=== PATIENT | female | born 1950 | race Caucasian/White ===

== ENCOUNTER 2017-03-13 13:14 | Inpatient (IN) | payer MEDICARE ==
[~2017-03-13] VITALS: Ht 162.6 cm; Wt 59.5 kg
--- NOTE | ~2017-03-13 | FU ---
[facility] Nutrition Therapy DATE: 03/17/17 Patient: GRAZYNA NGUYEN Physician: NEGAR Address: [address] Room/Bed: [address], Zip: [place] [address] Admit Date: 03/13/17 Date of : [birth year] Height: 5 4 Weight: 158 71.8 NUTRITION MONITORING/FOLLOW-UP: Reason: PT SEEN FOR FOLLOW-UP/ENTERAL NUTRITION SUPPORT DX: AMS, RESP FAILURE, PNA Anthropometrics: 5'6", WT: 158# (72 KG), BMI: 25.5 -WEIGHTS HAVE RANGED 134-158# SINCE ADMIT (ADMIT WEIGHT: 134#) Labs: GLU: 191, ALB: 2.6 Meds: KCL, PROPOFOL, SENOKOT, NOVOLOG, FENTANYL, SOLU-MEDROL, VERSED, ZOFRAN, PROTONIS, MIRALAX I&O's: 3876/2150 Skin: BILATERAL HEELS PRESSURE ULCER (PREVIOUSLY NOTED) Estimated Nutrition Needs: 8802-2700 KCAL 73-91 G PRO Assessment: CHART REVIEWED AND EVENTS NOTED. PT SEEN FOR ENTERAL NUTRITION SUPPORT FOLLOW-UP. PT CONTINUES TO BE INTUBATED AND SEDATED (PROPOFOL AT RATE OF 15.6 ML/HR PROVIDING ~411 KCAL FROM LIPIDS) RECEIVING ALTERNATIVE NUTRITION SUPPORT OF JEVITY 1.5 @ 40 ML/HR + 30 ML SUGAR-FREE PROSTAT ONCE DAILY + 200 ML q 4 HOURS FREE H20 FLUSHES (PER MD). PER RN AND CHART, PT TOLERATING EN, NOTING NO ISSUES. PER PUMP HISTORY, PT RECEIVING ~96% TOTAL VOLUME PAST 24 HOURS. NO FAMILY IN ROOM AT TIME OF VISIT. RD TO CONTINUE TO FOLLOW. -EN PROVIDES 1951 KCAL, 76 G PRO, 1930 ML FREE H20 Dx: INADEQUATE ORAL INTAKE R/T CURRENT DIAGNOSIS, VENT DEPENDENCE AEB NPO STATUS.-ACTIVE/RESOLVED NEW Dx: INADEQUATE ORAL INTAKE R/T CURRENT DIAGNOSIS, VENT DEPENDENCE AEB PT RECEIVING ENTERAL NUTRITION SUPPORT. Intervention: 1. ENTERAL NUTRITION SUPPORT Monitoring, Evaluation and Goals: 1. ENTERAL NUTRITION; PROVIDE >80% TOTAL VOLUME AT GOAL PAST 24 HOURS-MET 2. WEIGHTS; PROMOTE WEIGHT MAINTENANCE-IN PROGRESS (WEIGHTS RANGING 134-158#) 3. LABS; GLU (NOT MET), LYTES (IMPROVED) 4. GI; PROMOTE REGULAR GI FUNCTION-IN PROGRESS [facility] Nutrition Therapy DATE: 03/17/17 Patient: GRAZYNA NGUYEN Physician: NEGAR Address: [address] Room/Bed: [address], Zip: [place] [address] Admit Date: 03/13/17 Date of : [birth year] Height: 5 4 Weight: 158 71.8 5. SKIN; PROMOTE SKIN HEALING-IN PROGRESS MONITOR: -TF RATE/RESIDUALS -WEIGHTS -LABS -SEDATION RATE -EXTUBATION? Recommendations: 1. RECOMMEND TO CONTINUE CURRENT ENTERAL NUTRITION SUPPORT OF JEVITY 1.5 @ 40 ML/HR + 30 ML SUGAR-FREE PROSTAT DAILY + SEDATION -PROVIDES 1951 KCAL, 76 G PRO, 730 ML FREE H20 CONTINUE FREE H20 FLUSHES ABOVE PER MD 2. CONTINUE TO MONITOR BLOOD SUGAR CONTROL REGIMEN-PT'S BLOOD SUGARS ELEVATED 3. ONCE PT EXTUBATED, ADVANCE DIET PER MANAGER STYLE HH DIET RD WILL F/U PER PROTOCOL PT IS MOD/SEVERELY COMPROMISED Respectfully, RHIANNON SOFIA MS, RD, LD [facility] cc: client file
--- NOTE | ~2017-03-13 | CO ---
Unit #: [id number] #: [id number] Patient: GRAZYNA NGUYEN [id number] [facility] [address] [place], [place] [address] [id number] I MR#: [id number] NAME: GRAZYNA NGUYEN ROOM: CICCU2 Age: 66 Sex: F Admission Date: 03/13/2017 : 1950 Attending Physician: Davian Lyons M.D. Primary Care Physician: Primary Care Physician No Consultation Date: 03/14/2017 CONSULTATION REPORT PRIMARY CARE PHYSICIAN Not listed. REASON FOR CONSULT Age-indeterminate lacunar infarct. PATIENT IDENTIFICATION This is a 66-year-old, female, evaluated in ICU room 5 at [facility]. SOURCE OF INFORMATION Obtained from the medical record. HISTORY OF PRESENT ILLNESS This is a 66-year-old, female with a past medical history of admission to [facility] in 2014 for Valium and Seroquel overdose, history of chronic kidney disease, stage III, and bipolar disorder followed by Dr. Pastrana, who presents to [facility] with altered mental status and cough. Apparently, the patient has been coughing for the last few days prior to admission, and was possibly confused on the day prior to admission. Apparently, on the day of admission, the patient was getting dressed for doctor's appointment that was scheduled for the next day. She had decreased appetite and had decreased urine output. Given all the above, the apparently decided to bring her to the ER for further evaluation of concern for her worsening condition and changes he was seeing. Upon arrival to the ER, her pulse was 132 and her respirations were 19. She was apparently agonal with oxygen saturation 74% on room air. She ended up being intubated and chest x-ray showed bilateral infiltrates. She was admitted for treatment of pneumonia and given Rocephin and Levaquin in the ER. She had a head CT scan done for mental status changes that was with and without contrast. It showed no definite acute intracranial abnormality. It shows atrophy for her age group with mild probable sequelae of small vessel disease and disproportionate volume loss, most consistent with long-term alcohol abuse as per history and an area of possible age-indeterminate lacunar infarct in the medial right basal ganglia, but no appreciable mass effect. Therefore, Neurology was asked to further evaluate. The patient is unable to provide any history and review of systems. She is currently intubated and on a fentanyl drip. She does open her eyes to voice. She is anxious, she is tensed, but she does follow some commands. She moves all extremities equally and spontaneously and has no cranial nerve deficits on exam, but exam is limited neurologically given her intubation and sedation. Unit #: [id number] #: [id number] Patient: GRAZYNA NGUYEN PAST MEDICAL HISTORY 1. Chronic kidney disease, stage 3. 2. Admission to [facility] in 2014 for Valium and Seroquel overdose. 3. Bipolar disorder, followed by Dr. Pastrana. 4. Hysterectomy. 5. Cholecystectomy. 6. Hemorrhoid surgery. FAMILY HISTORY Positive for COPD and lung cancer. SOCIAL HISTORY The patient is , lives with her . She smokes tobacco. She smokes marijuana. The ER triage sheet shows she is a daily drinker, but according to the medical record, apparently the told the hospitalist that she only drinks alcohol on occasion. ALLERGIES Salicylates, pyrazoles, NSAIDs, aspirin, ibuprofen. HOME MEDICATIONS As per med rec include acetaminophen 325 mg p.o. daily p.r.n., Norvasc 10 mg p.o. daily, fluoxetine 40 mg p.o. daily, B12 1000 mcg p.o. daily. REVIEW OF SYSTEMS 14-point review of systems not able to be done given patient's intubation and sedation. PHYSICAL EXAMINATION VITAL SIGNS: Temperature 97.9, she has been afebrile, pulse 79, respirations 22, blood pressure 102/48. Blood pressure in the ER on arrival was 120/75. She has had some episodes of hypotension here, has been started on a Levophed drip. She remains stable today. Oxygen saturation 100% on the ventilator. Height 5 feet 4 inches, weight 134 pounds. NEUROLOGIC: The patient is intubated. She is sedated; however, she opens her eyes to voice. She is anxious and tense, but moves all extremities equally and spontaneously. She follows some commands. Unable to evaluate speech or cognition further as she is intubated and on fentanyl drip. Cranial nerve exam, she responds to threats in the primary and peripheral visual kraus. Eyes are conjugate without ptosis or nystagmus. Extraocular movements are intact. Unable to assess sensation of face and scalp or fully assess strength of the muscles of facial expression, but no asymmetry seen. No obvious cranial nerve findings seen. Hearing is intact to voice. Unable to assess tongue, uvula, or palate. Head turning is unremarkable spontaneously and with command, I am unable to assess shoulder shrug. Motor exam, she is very tense. Therefore, I am not able to assess tone appropriately. She seems very strong in all extremities and equal, nonfocal. Sensory exam, unable to fully assess at this time. Gait and Romberg deferred. Reflexes, unable to fully assess appropriately as the patient is tense. Coordination, unable to assess. No tremors or myoclonus seen. Unit #: [id number] #: [id number] Patient: GRAZYNA NGUYEN DIAGNOSTIC STUDIES IMAGING STUDIES: CT of the head without contrast, please see above. LABORATORY RESULTS: Hemoglobin A1c 5.8. Blood culture, preliminary; no growth after 24 hours. Legionella urine negative. Sputum test; moderate white blood cells, few epithelial cells, few gram-positive cocci in clusters, rare gram-positive cocci in pairs. Urine culture; gram-negative rods greater than 100,000 colony count. Troponin 0.04. Sodium 132, potassium 4.2, chloride 100, CO2 of 25, glucose 125, BUN 38, creatinine 1.2, estimated GFR 46.4, calcium 8.2, CK 33. White blood cell count 14.9, hemoglobin 11, hematocrit 36.4, platelet count 284. TSH 1.29. BNP 55. Ammonia 25. Lactic acid 1.8. Urine tox screen is positive for benzodiazepines, marijuana and TCA. PT 11.4, INR 1.1, PTT 28.5. Initial white count 22.5, platelet count 335. IMPRESSION 1. Toxic and metabolic encephalopathy present on admission. 2. Pneumonia. 3. Acute respiratory failure. 4. Urinary tract infection. 5. Chronic kidney disease. PLAN I reviewed the head CT with Dr. Tejeda at the time of his evaluation and rounding. He agrees to the above. She appears to have possibly very small hypodensity in right basal ganglia, but it does not appear to be acute or subacute based upon CT findings and does not correlate clinically with the patient; however, the patient's exam is limited given her intubation and sedation. She is critically ill at this time and her choice at this point is a wait and see the clinical picture and how it improves. We will get MRI; however, we recommend waiting on getting an MRI as the patient is intubated and sedated and is having difficulty lying still even with sedation. We will follow closely along with you. Consideration for antiplatelet therapy, but again recommendations to treat other acute issues and consider MRI of the brain, and re-evaluation clinically as the patient improves. Any findings on the CT did not explain the patient's presentation of mental status changes. No hemorrhage seen on the CT scan. We will follow along with you. We thank you very much for allowing us to assist in the care of this patient. Dictated by... Darlin Oliveros A.P.R.N. for Bg Garcia/jose f TD: 03/15/2017 05:39 JOB #: [id number] Unit #: [id number] #: [id number] Patient: GRAZYNA NGUYEN CONSULTATION REPORT Page 1 of 1 X Darlin Oliveros JUVENILE COUNSELOR X CONSULTATION REPORT
--- NOTE | ~2017-03-13 | CR72 ---
[facility] A Service of [facility] RADIOLOGY TEXT RESULTS PATIENT: GRAZYNA NGUYEN LOCATION: [address] : [birth year] UNIT #: [id number] AGE: [address]: Davian Lyons MD SEX: F ORDER DR: [id number] [facility] [address] [place], [place] [address] [id number] I MR#: [id number] Acc #: [id number] NAME: GRAZYNA NGUYEN : 1950 SEX: F STUDY DATE/TIME: 03/13/2017 13:34 UNIT: [facility] ROOM: [facility] STUDY DESCRIPTION: CR Chest Single View Portable Attending Physician: Kiesha Hernández M.D. Ordering Physician: Amilcar Stevenson D.O. Primary Care Physician: No Primary Care Physician MEDICAL IMAGING REPORT This report is preliminary unless electronic signature is present EXAM Chest x-ray single-view portable. HISTORY ET tube placement today. COMMENT Single frontal portable view of the chest timed 13:34 03/13/2017 is reviewed. There is an earlier film from 05/27/2015. The endotracheal tube is satisfactory. The heart size is normal. There is interval change in the appearance of the lung parenchyma with interval development of reticulonodular disease diffusely both lungs. Please correlate for clinical evidence of infectious or inflammatory disease. There is some old granulomatous disease redemonstrated. There is no congestive failure suspected. There is no pleural effusion or pneumothorax. IMPRESSION 1. Endotracheal tube is satisfactory. 2. Abnormal appearance of lung parenchyma new from 2014 with development of diffuse reticulonodular disease. Please correlate for clinical evidence of infectious or inflammatory disease. The cardiac silhouette size is normal and there is no evidence for pleural effusion and the findings are not suggestive of congestive heart failure. Dictated by... Vilma Archibald M.D. THIS IS AN ELECTRONICALLY VERIFIED REPORT Vilma Archibald M.D. at 03/15/2017 8:41 AM SAC/bd [facility] A Service of [facility] RADIOLOGY TEXT RESULTS PATIENT: GRAZYNA NGUYEN LOCATION: [facility] CICCU2-05 : [birth year] UNIT #: [id number] AGE: [address]: Davian Lyons MD SEX: F ORDER DR: TD: 03/14/2017 09:18 JOB #: [id number] MEDICAL IMAGING REPORT Page 1 of 1 COPY
--- NOTE | ~2017-03-13 | OR ---
Unit #: [id number] #: [id number] Patient: GRAZYNA NGUYEN [id number] [address] [address] [id number] I MR#: [id number] NAME: GRAZYNA NGUYEN ROOM: [facility] Date of Procedure: 03/16/2017 Admission Date: 03/13/2017 Surgeon: Olvin Ramirez M.D. : 1950 Attending Physician: Davian Lyons M.D. Primary Care Physician: Olivia Primary Care Physician PROCEDURE OPERATIVE NOTE PROCEDURE Diagnostic and therapeutic bronchoscopy with washing. INDICATION FOR PROCEDURE Respiratory failure and pneumonia. FINDINGS Diffuse thin dark fhasqagws-vd-dhkqanvh sputum at the level of the reji, right main bronchus, right lower lobe, right upper lobe, left main bronchus and left lower lobe. PRE-MEDICATION The patient is on fentanyl and propofol drips before the procedure. DESCRIPTION OF THE PROCEDURE Informed consent was obtained from the after explaining the benefits and risks of this procedure. The patient was prepped and positioned in the proper way. Then, the bronchoscope was advanced through the ET tube, and at the level of the reji, 6 mL of 1% lidocaine was instilled. Then the bronchoscope was wedged at the level of the reji, and large collection of thin mucus secretions was aspirated back. Then, the bronchoscope was advanced into the right main bronchus. The right upper lobe, right middle lobe and right lower lobe were examined, which appeared normal except for diffuse and copious amount of thin iepbnjyjl-bd-cqwzpkoh secretions, mainly at the level of the right main bronchus and right lower lobe. Lavage and washing were obtained from the right lower lobe. Then, the bronchoscope was retracted and then readvanced into the left main bronchus. The left upper lobe, lingula and left lower lobe were examined. The left lower lobe was also impacted with diffuse amount of secretions, which was aspirated out. The bronchoscope was retracted out then, and the patient tolerated her procedure well with no immediate complications. Dictated by... Olvin Ramirez M.D. EA/mirta TD: 03/16/2017 10:15 Unit #: [id number] #: [id number] Patient: GRAZYNA NGUYEN JOB #: [id number] PROCEDURE OPERATIVE NOTE Page 1 of 1 X OLVIN YOUNGER MD PROCEDURE OPERATIVE NOTE
--- NOTE | ~2017-03-13 | HP ---
Unit #: [id number] #: [id number] Patient: GRAZYNA NGUYEN [id number] [place], [place] [address] [id number] I MR#: [id number] NAME: GRAZYNA NGUYEN ROOM: 25342 Age: 66 Sex: F Admission Date: 03/13/2017 : 1950 Attending Physician: Kiesha Hernández M.D. HISTORY AND PHYSICAL CHIEF COMPLAINT Altered mental status. HISTORY OF PRESENT ILLNESS The patient is a 66-year-old female with a past medical history of chronic kidney disease and bipolar disorder who presented to the emergency department for evaluation of the above. History is obtained from chart review and discussion with ER staff, as well as from the patient's who is at bedside. The patient has apparently been coughing for the past couple of days. She was possibly confused on the day prior to admission. The patient's states that she got dressed and ready for a doctor's appointment that is scheduled for tomorrow. She has had decreased appetite. The patient's states that this morning he noticed that she had not had much urine output, and so he brought her to the emergency department for further evaluation. Upon arrival in the emergency department, the patient's pulse was 132 and respirations 19. She was noted to be agonal with oxygen saturation of 74% on room air. She was ultimately intubated. Chest x-ray shows bilateral infiltrates. She was given Rocephin and Levaquin in the emergency department. She is being admitted to [facility] for evaluation and further treatment. PAST MEDICAL HISTORY 1. Admission to [facility] May 26, 2015, for a valium and Seroquel overdose. 2. Chronic kidney disease stage 3 with a baseline creatinine of 1.2. 3. Bipolar disorder followed by Dr. Pastrana. PAST SURGICAL HISTORY 1. Hysterectomy. 2. Cholecystectomy. 3. Hemorrhoid surgery. SOCIAL HISTORY The patient lives with her . She is a smoker. She also smokes marijuana. The ER triage sheet states that she is a daily drinker. However, the patient's states that she only drinks alcohol occasionally. She typically walks without assistance. She is oriented x3 at baseline. FAMILY HISTORY Notable for her mother having COPD, and her dad had lung cancer. Unit #: [id number] #: [id number] Patient: FREEZE,GRAZYNA ALLERGIES Salicylates, pyrazoles, NSAIDS, aspirin, ibuprofen. HOME MEDICATIONS 1. Tylenol. 2. Norvasc. 3. Fluoxetine. 4. Cyanocobalamin. Home medications will need to be reviewed and verified. REVIEW OF SYSTEMS A complete review of systems is unobtainable from the patient but negative except as indicated in the History of Present Illness per the family. PHYSICAL EXAMINATION VITAL SIGNS: Temperature is 99.1, pulse 132, respirations 18, blood pressure 120/75, and oxygen saturation is listed as 98% on ventilator. I was told that oxygen saturation was 74% on room air in the emergency department. GENERAL: Patient is a female who is sedated and intubated. HEENT: Head is atraumatic. Mucous membranes are moist. NECK: Supple. Trachea is midline. CARDIOVASCULAR: Regular rate and rhythm. LUNGS: Scattered rhonchi. ABDOMEN: Soft with bowel sounds present in all four quadrants. EXTREMITIES: Nontender with no pedal edema. NEUROLOGIC: Patient is currently sedated. She was obtunded on arrival. She had minimally reactive pupils and responded to pain minimally. PSYCHIATRIC: Unable to assess. SKIN: Skin of examined areas is warm and dry. DIAGNOSTIC STUDIES LABORATORY: INR is 1.1. Urinalysis notable for trace leukocyte esterase, 2+ protein, and 1+ blood with 5-10 red blood cells, 4+ bacteria, and occasional squamous cells. White blood cell count is 22.5. Comprehensive metabolic panel notable for sodium of 132, chloride 94, glucose 215, BUN and creatinine 37 and 1.4, respectively, alkaline phosphatase 148, total protein 8.8, and albumin 3.1. Tylenol, salicylate, and alcohol levels are negative. Urine toxicology screen is positive for benzodiazepine, marijuana, and tricyclics. Arterial blood gas shows a pH of 7.199, PCO2 of 74.7, and PO2 of 435, on assist control with an FIO2 of 100%. Lactic acid is 1.8. Ammonia level is 25. BNP is 55. IMAGING: Chest x-ray shows diffuse reticular nodular densities bilaterally. CARDIOLOGY: EKG shows sinus tachycardia with a rate of 104 beats per minute. ASSESSMENT The patient is a 66-year-old female with: 1. Altered mental status. 2. Acute respiratory failure, hypoxic and hypercapnic. 3. Pneumonia, community acquired. The patient received Rocephin and Levaquin in the emergency department. 4. Sepsis with an initial lactic acid of 1.8. Unit #: [id number] #: [id number] Patient: GRAZYNA NGUYEN 5. Urinary tract infection. 6. Age indeterminant lacunar infarct right basal ganglia. 7. Hyperglycemia. The patient does not have a history of diabetes. 8. Chronic kidney disease stage 3 with a baseline creatinine of 1.2. Creatinine is 1.4 today. 9. Bipolar disorder. 10. Tobacco abuse. PLAN 1. Admit to ICU. 2. N.p.o. 3. Normal saline at 125 mL/hour. 4. TSH, B12, and folate. 5. Consult Dr. Vale Ramirez regarding acute respiratory failure and ventilator management. 6. Blood cultures x2. 7. Sputum culture and sensitivity. 8. Procalcitonin level. 9. Rocephin IV and Levaquin IV for community-acquired pneumonia pending further workup. 10. DuoNebs q.4 hours. 11. Sepsis protocol with repeat lactic acid. 12. Urine culture and sensitivity on urine in the lab. 13. Consult Neurology regarding age-indeterminant lacunar infarct. 14. Hemoglobin A1c. 15. Check magnesium and phosphorus levels. 16. Protonix for GI prophylaxis since the patient will be in the ICU. 17. SCDs for DVT prophylaxis. 18. Repeat labs in the morning. 19. Additional workup and consultants based on above. 20. Regarding code status, the patient is a Full Code. Thirty-three (33) minutes critical care time spent in the care of this patient (3:10-3:43 p.m.). Dictated by Bg Tucker TD: 03/13/2017 16:56 JOB #: [id number] HISTORY AND PHYSICAL Page 1 of 1 X Kiesha Hernández MD HISTORY AND PHYSICAL
--- NOTE | ~2017-03-13 | CR72 ---
[facility] A Service of [facility] RADIOLOGY TEXT RESULTS PATIENT: GRAZYNA NGUYEN LOCATION: [facility] 561-01 : [birth year] UNIT #: [id number] AGE: [address]: Davian Lyons MD SEX: F ORDER DR: [id number] [facility]. [place], [place] [address] [id number] MR#: [id number] Acc #: [id number] NAME: GRAZYNA NGUYEN : 1950 SEX: F STUDY DATE/TIME: 03/20/2017 5:40 UNIT: [facility] ROOM: [facility] STUDY DESCRIPTION: CR Chest Single View Portable Attending Physician: Davian Lyons M.D. Ordering Physician: Ye Best M.D. MEDICAL IMAGING REPORT This report is preliminary unless electronic signature is present EXAM AP view of the chest COMPARISON March 19, 2017 and March 18, 2017. INDICATIONS 66-year-old female with dyspnea for 7 days. Respiratory failure requiring ventilatory support. FINDINGS IMPRESSION Right internal jugular catheter is again noted with the tip terminating in the upper SVC, stable. Endotracheal tube appears grossly stable terminating 2.9 cm above the reji. No evidence of pneumothorax or pleural effusion. Cardiomediastinal silhouette is within normal limits. There is stable nonspecific prominence of the pulmonary vasculature and/or bronchial structures. Mild pulmonary vascular congestion or possibly an acute bronchitis cannot be excluded. There is no pleural effusion or evidence of consolidative pneumonia. There are healed and/or healing fractures of the right sixth and seventh posterior ribs. The second image of the chest demonstrates the feeding tube tip to be within the expected location of the gastric body. Dictated by... Mahad Chiang M.D. THIS IS AN ELECTRONICALLY VERIFIED REPORT Mahad Chiang M.D. at 03/27/2017 3:55 PM BLM/pcl [facility] A Service of [facility] RADIOLOGY TEXT RESULTS PATIENT: GRAZYNA NGUYEN LOCATION: [facility] 561-01 : [birth year] UNIT #: [id number] AGE: [address]: Davian Lyons MD SEX: F ORDER DR: TD: 03/20/2017 10:42 JOB #: [id number] MEDICAL IMAGING REPORT Page 1 of 1 COPY
--- NOTE | ~2017-03-13 | CR72 ---
[facility] A Service of [facility] & [facility] RADIOLOGY TEXT RESULTS PATIENT: GRAZYNA NGUYEN LOCATION: [address] : 48 UNIT #: [id number] AGE: [address]: Davian Lyons MD SEX: F ORDER DR: [id number] [facility] [address] [place], [place] [address] [id number] I MR#: [id number] Acc #: [id number] NAME: GRAZYNA NGUYEN : 1950 SEX: F STUDY DATE/TIME: 03/19/2017 10:28 UNIT: [facility] ROOM: [facility] STUDY DESCRIPTION: CR Chest Single View Portable Attending Physician: Davian Lyons M.D. Ordering Physician: Er [facility] MEDICAL IMAGING REPORT This report is preliminary unless electronic signature is present EXAM Single view chest INDICATIONS Respiratory failure. Shortness of air. FINDINGS Single portable AP view chest compared to 03/18/2017. Support lines and tubes remain in place. Heart and mediastinal contours are unchanged. There are mild increased interstitial opacities in both lungs, however these are unchanged. No pneumothorax. IMPRESSION No acute cardiopulmonary findings. Dictated by... Martinez Pennington M.D. THIS IS AN ELECTRONICALLY VERIFIED REPORT Martinez Pennington M.D. at 03/19/2017 2:18 PM RPC/pcl TD: 03/19/2017 13:24 JOB #: [id number] MEDICAL IMAGING REPORT Page 1 of 1 COPY
--- NOTE | ~2017-03-13 | FU ---
[facility] Nutrition Therapy DATE: 03/22/17 Patient: GRAZYNA NGUYEN Physician: NEGAR Address: [address] [place] [address] Room/Bed: [address] [place] [address], Zip: [place] [address] Admit Date: 03/13/17 Date of : 46 Height: 5 4 Weight: 144 65.5 NUTRITION MONITORING/FOLLOW-UP: Reason: Nutrition follow-up Admitting dx: 66 y/o female admitted with AMS, PNA, respiratory failure Anthropometrics: Ht: 66", admission wt: 134 lbs, current wt: 144 lbs, BMI: 22 (normal) Labs: K+ 3.2, glucose 116, POC 122-167 Meds: Novolog (medium SSI), senokot, miralax, zofran prn GI: Last BM 03/21 (diarrhea improving) Skin: DTI PRANEETH heels, no edema Assessment: Chart reviewed, events noted. Patient extubated 2 days ago (03/20), now tolerating 3L nasal cannula. OFFICE CLIN ASST cleared for mechanical soft diet yesterday, patient consumed ~50-75% of lunch today per RD observation. She does not answer questions appropriately however confirms she likes chocolate- will order daily Ensure to help meet nutritional needs and recommend to D/C consistent carb restriction. OFFICE CLIN ASST also recommended no straws and supervision with meals. Weight stable, pt remains confused but pleasant. See nutrition dx and goals as stated below. Plan home with HH? Will follow. Dx: Inadequate oral intake r/t current dx, vent dependence AEB need for EN - RESOLVED New nutrition dx: Predicted suboptimal energy intake r/t mental status, mild dysphagia AEB need for mechanically altered diet, supervision with meals, daily Ensure. Intervention: Daily Ensure Enlive, OFFICE CLIN ASST to follow, lyte replacement Monitoring, Evaluation and Goals: 1. EN to provide > 80% goal volume/24hrs - NO LONGER RELEVANT 2. Maintain weight status - MET 3. Labs WNL - IN PROGRESS 4. GI function WNL - IN PROGRESS New goal: > 50% oral intake at meals Recommendations: 1. Due to patient having no hx of DM, glucose pretty well controlled and Solu-medrol being [facility] Nutrition Therapy DATE: 03/22/17 Patient: GRAZYNA FREEZE Physician: NEGAR Address: [address] [facility] Room/Bed: [address] [place] [address], Zip: [place] [address] Admit Date: 03/13/17 Date of : [birth year] Height: 5 4 Weight: 144 65.5 discontinued today suggest to D/C consistent carb restriction. Continue with mechanical soft diet per OFFICE CLIN ASST, no straws and supervision with meals. Encourage oral intake. 2. RD ordering daily chocolate Ensure Enlive to help meet kcal/protein needs due to pt's condition. 3. Replace lytes prn (K+ low). Status: Mild-moderate nutrition risk Respectfully, Arianne Ivey RD, LD [facility] and Nutrition[facility] cc: client file
--- NOTE | ~2017-03-13 | CR7 ---
[facility] A Service of [facility] & [facility] RADIOLOGY TEXT RESULTS PATIENT: GRAZYNA NGUYEN LOCATION: [address] : 48 UNIT #: [id number] AGE: [address]: Davian Lyons MD SEX: F ORDER DR: [id number] [facility] [address] [place], [place] [address] [id number] I MR#: [id number] Acc #: [id number] NAME: GRAZYNA NGUYEN : 1950 SEX: F STUDY DATE/TIME: 03/14/2017 13:57 UNIT: [facility] ROOM: [facility] STUDY DESCRIPTION: CR Abdomen Single AP View Attending Physician: Davian Lyons M.D. Ordering Physician: Davian Lyons M.D. Primary Care Physician: Primary Care Physician No MEDICAL IMAGING REPORT This report is preliminary unless electronic signature is present EXAM Supine abdomen one view, 03/14/17 HISTORY Dobbhoff tube placement FINDINGS Distal weight tip of a Dobbhoff tube is in the mid stomach. Dictated by... Tra Huang M.D. THIS IS AN ELECTRONICALLY VERIFIED REPORT Tra Huang M.D. at 03/16/2017 10:32 AM SAM/westley TD: 03/15/2017 08:37 JOB #: [id number] MEDICAL IMAGING REPORT Page 1 of 1 COPY
--- NOTE | ~2017-03-13 | EKG ---
PATIENT: GRAZYNA NGUYEN UNIT #: [id number] Ventricular Rate: 104 BPM Atrial Rate: 104 BPM P-R Interval: 146 ms QRS Duration: 102 ms Q-T Interval: 356 ms QTC Calculation(Bezet): 468 ms P [place]: 69 degrees Calculated R [place]: 75 degrees Calculated T [place]: 34 degrees Diagnosis Line: Sinus tachycardia Diagnosis Line: Biatrial enlargement Diagnosis Line: Anteroseptal infarct , age undetermined Diagnosis Line: Abnormal ECG Diagnosis Line: When compared with ECG of 28-MAY-2015 06:04, Diagnosis Line: Anteroseptal infarct is now Present Diagnosis Line: Nonspecific T wave abnormality, improved in Diagnosis Line: Lateral leads Diagnosis Line: QT has shortened Diagnosis Line: Confirmed by FREDY LYMAN MD ([id number]) on Diagnosis Line: 03/14/2017 5:13:06 PM INTERPRETING MD: MARIANO
--- NOTE | ~2017-03-13 | CR72 ---
"[facility] A Service of [facility] & [facility] RADIOLOGY TEXT RESULTS PATIENT: GRAZYNA NGUYEN LOCATION: [place] [address] : 48 UNIT #: [id number] AGE: [address]: Davian Lyons MD SEX: F ORDER DR: [id number] [facility] [address] [place], [place] [address] [id number] I MR#: [id number] Acc #: [id number] NAME: GRAZYNA NGUYEN : 1950 SEX: F STUDY DATE/TIME: 03/21/2017 2:26 UNIT: [facility] ROOM: [facility] STUDY DESCRIPTION: CR Chest Single View Portable Attending Physician: Davian Lyons M.D. Ordering Physician: Ye Best M.D. Primary Care Physician: Primary Care Physician No MEDICAL IMAGING REPORT This report is preliminary unless electronic signature is present EXAM| Portable chest INDICATIONS Respiratory failure followup. PROCEDURE Frontal view chest. COMPARISON 03/20/2017 FINDINGS Heart size is stable. Interval extubation. No new dense consolidation. No pneumothorax. IMPRESSION Interval extubation. Otherwise stable. Dictated by... Carter Grossman M.D. THIS IS AN ELECTRONICALLY VERIFIED REPORT Carter Grossman M.D. at 03/21/2017 10:02 PM ROX/westley TD: 03/21/2017 10:12 JOB #: [id number] MEDICAL IMAGING REPORT Page 1 of 1 COPY"
--- NOTE | ~2017-03-13 | CR72 ---
[facility] A Service of [facility] & [facility] RADIOLOGY TEXT RESULTS PATIENT: GRAZYNA NGUYEN LOCATION: [address] : 48 UNIT #: [id number] AGE: [address]: Davian Lyons MD SEX: F ORDER DR: [id number] [facility] [address] [place], [place] [address] [id number] I MR#: [id number] Acc #: [id number] NAME: GRAZYNA NGUYEN : 1950 SEX: F STUDY DATE/TIME: 03/14/2017 4:34 UNIT: [facility] ROOM: [facility] STUDY DESCRIPTION: CR Chest Single View Portable Attending Physician: Davian Lyons M.D. Ordering Physician: Caroline Ramirez M.D. Primary Care Physician: Primary Care Physician No MEDICAL IMAGING REPORT This report is preliminary unless electronic signature is present EXAM Portable chest INDICATION Daily portable chest. Respiratory failure. Follow up endotracheal tube. FINDINGS This portable view of the chest shows no change from yesterday's study with faint, diffuse infiltrates. The endotracheal tube is in good position and the heart size is normal. Dictated by... Sahil Toussaint M.D. THIS IS AN ELECTRONICALLY VERIFIED REPORT Sahil Toussaint M.D. at 03/14/2017 1:36 PM TADEO/cheikh TD: 03/14/2017 13:20 JOB #: [id number] MEDICAL IMAGING REPORT Page 1 of 1 COPY
--- NOTE | ~2017-03-13 | CR72 ---
[facility] A Service of [facility] RADIOLOGY TEXT RESULTS PATIENT: GRAZYNA NGUYEN LOCATION: [address] : [birth year] UNIT #: [id number] AGE: [address]: Davian Lyons MD SEX: F ORDER DR: [id number] [place] [id number] [place], [place] [address] [id number] I MR#: [id number] Acc #: [id number] NAME: GRAZYNA NGUYEN : 1950 SEX: F STUDY DATE/TIME: 03/17/2017 5:28 UNIT: [facility] ROOM: [facility] STUDY DESCRIPTION: CR Chest Single View Portable Attending Physician: Davian Lyons M.D. Ordering Physician: Caroline Ramirez M.D. Primary Care Physician: Primary Care Physician No MEDICAL IMAGING REPORT This report is preliminary unless electronic signature is present EXAM Frontal chest 03/17/2017 INDICATION 66-year-old female with a history of respiratory failure, pneumonia, confusion, cough. Symptoms began on March 13. Short of breath. TECHNIQUE Frontal chest compared with 03/14/2017. FINDINGS ET tube tip in good position above the reji. Enteric tube has been placed in the interval with the tip below the diaphragm and not in the field of view. Cardiac silhouette stable. Primarily interstitial and faint alveolar opacities bilaterally not significantly changed. No pneumothorax. Probable slight increase in atelectasis in the left lung base. IMPRESSION 1. Tubes and lines in satisfactory position to the extent visualized. No pneumothorax. 2. Slight interval worsening of probable atelectasis in the left lung base. Otherwise no significant change. Dictated by... Salvador Gaytan M.D. THIS IS AN ELECTRONICALLY VERIFIED REPORT Salvador Gayatn M.D. at 03/17/2017 4:00 PM SUNI/cheikh TD: 03/17/2017 06:35 [facility] A Service of [facility] / [facility] RADIOLOGY TEXT RESULTS PATIENT: GRAZYNA NGUYEN LOCATION: [address] : 48 UNIT #: [id number] AGE: [address]: Davian Lyons MD SEX: F ORDER DR: KARYN #: [id number] MEDICAL IMAGING REPORT Page 1 of 1 COPY
--- NOTE | ~2017-03-13 | CR72 ---
[facility] A Service of [facility] & [facility] RADIOLOGY TEXT RESULTS PATIENT: GRAZYNA NGUYEN LOCATION: [address] : 48 UNIT #: [id number] AGE: [address]: Davian Lyons MD SEX: F ORDER DR: [id number] [facility] [address] [place], [place] [address] [id number] I MR#: [id number] Acc #: [id number] NAME: GRAZYNA NGUYEN : 1950 SEX: F STUDY DATE/TIME: 03/18/2017 5:40 UNIT: [facility] ROOM: [facility] STUDY DESCRIPTION: CR Chest Single View Portable Attending Physician: Davian Lyons M.D. Ordering Physician: Caroline Ramirez M.D. Primary Care Physician: Primary Care Physician No MEDICAL IMAGING REPORT This report is preliminary unless electronic signature is present EXAM Portable chest INDICATION Follow up endotracheal tube and pneumonia. FINDINGS This portable view of the chest shows the endotracheal tube tip is 2 cm above the reji. There is mild faint interstitial prominence noted throughout the lungs and some left base atelectasis. There has been no change. Dictated by... Sahil Toussaint M.D. THIS IS AN ELECTRONICALLY VERIFIED REPORT Sahil Toussaint M.D. at 03/18/2017 1:32 PM TADEO/cheikh TD: 03/18/2017 09:51 JOB #: [id number] MEDICAL IMAGING REPORT Page 1 of 1 COPY
--- NOTE | ~2017-03-13 | OR ---
Unit #: [id number] #: [id number] Patient: GRAZYNA NGUYEN [id number] [address] [address] [id number] I MR#: [id number] NAME: GRAZYNA NGUYEN ROOM: [facility] Date of Procedure: 03/14/2017 Admission Date: 03/13/2017 Surgeon: Olvin Ramirez M.D. : 1950 Attending Physician: Davian Lyons M.D. Primary Care Physician: No Primary Care Physician PROCEDURE OPERATIVE NOTE PROCEDURE PERFORMED Left femoral line placement with ultrasound guidance. INDICATION FOR PROCEDURE Severe sepsis, on the vent. PRE-OP DIAGNOSIS Pneumonia. COMPLICATIONS None. PREMEDICATIONS 1. Versed 4 mg IV x1. 2. Fentanyl drip. DESCRIPTION OF THE PROCEDURE Informed consent was obtained from the after explaining the benefits and risks of this procedure. The procedure was meant first for the internal jugular site; however, due to severe agitation, I felt it was unsafe to proceed with neck region, so her left groin was cleaned with chlorhexidine, and then a body drape was applied. Then, with ultrasound-guidance a needle was inserted until blood flow was obtained. Then, a guidewire was inserted, and the needle was removed. Then, dilator was used over the guidewire. Then, eventually the catheter was inserted over the guidewire, and the catheter was flushed appropriately and sutured in place. A Biopatch and clean dressing were applied. The patient tolerated her procedure well with no immediate complication. Dictated by... Olvin Ramirez M.D. EA/mirta TD: 03/14/2017 12:59 JOB #: [id number] Unit #: [id number] #: [id number] Patient: GRAZYNA NGUYEN PROCEDURE OPERATIVE NOTE Page 1 of 1 X OLVIN YOUNGER MD X PROCEDURE OPERATIVE NOTE
--- NOTE | ~2017-03-13 | CT71 ---
[facility] A Service of [facility] & [facility] RADIOLOGY TEXT RESULTS PATIENT: GRAZYNA NGUYEN LOCATION: [address] : 48 UNIT #: [id number] AGE: [address]: Davian Lyons MD SEX: F ORDER DR: [id number] [facility] [address] [address] [address] [place], [place] [address] [id number] I MR#: [id number] Acc #: [id number] NAME: GRAZYNA NGUYEN : 1950 SEX: F STUDY DATE/TIME: 03/13/2017 13:43 UNIT: [facility] ROOM: [facility] STUDY DESCRIPTION: CT Head Wo Contrast Attending Physician: Kiesha Hernández M.D. Ordering Physician: Amilcar Stevenson D.O. Primary Care Physician: Primary Care Physician No MEDICAL IMAGING REPORT This report is preliminary unless electronic signature is present EXAM Head CT without HISTORY Unresponsive today, found down today. Known history of hypertension and daily alcohol. No cancer history. Trauma history is unknown. COMMENT Routine noncontrast head CT is reviewed. Comparison is from 05/26/2015. This CT examination was performed with one or more of the following radiation dose reduction techniques: automatic exposure control, adjustment of mA and/or kV according to patient size, and iterative reconstruction. Visualized paranasal sinuses show mild mucosal disease but no air-fluid level. Visualized mastoid air cells are clear. No displaced calvarial fracture. There is no evidence for acute intracranial hemorrhage or extraaxial fluid collection. There is generalized atrophy for age group with somewhat disproportionate volume loss in the posterior fossa consistent with long-term alcohol abuse indicated in the history. There is mild predominantly periventricular white matter low-attenuation which is nonspecific but probably due to small vessel disease. There is no evidence for acute cortical infarct. If there is clinical concern however for acute CVA followup imaging would be indicated preferably with an MRI. There might be a small lacune at the medial right putamen to globus pallidus region age indeterminate. IMPRESSION 1. No definite acute intracranial abnormality. If there is clinical concern for acute CVA, followup imaging is recommended. 2. Atrophy for age group with mild probable sequelae of small vessel disease. Disproportionate volume loss is most consistent with long-term alcohol abuse as indicated in the history. [facility] A Service of [facility] RADIOLOGY TEXT RESULTS PATIENT: GRAZYNA NGUYEN [facility] 48 UNIT #: [id number] AGE: [address]: Davian Lyons MD SEX: F ORDER DR: 3. Possible age-indeterminate lacune medial right basal ganglia. No appreciable mass effect. Dictated by... Vilma Archibald M.D. THIS IS AN ELECTRONICALLY VERIFIED REPORT Vilma Archibald M.D. at 03/15/2017 8:41 AM MAMTA/cheikh TD: 03/14/2017 09:18 JOB #: [id number] MEDICAL IMAGING REPORT Page 1 of 1 COPY
--- NOTE | ~2017-03-13 | CO ---
Unit #: [id number] #: [id number] Patient: GRAZYNA NGUYEN [id number] [address] [address] [id number] I MR#: [id number] NAME: GRAZYNA NGUYEN ROOM: [facility] Age: 66 Sex: F Admission Date: 03/13/2017 : 1950 Attending Physician: Kiesha Hernández M.D. Primary Care Physician: Olivia Primary Care Physician Consultation Date: 03/13/2017 CONSULTATION REPORT REASON FOR CONSULT ICU management. CHIEF COMPLAINT Altered mental status. HISTORY OF PRESENT ILLNESS This is a 66-year-old female with past medical history significant for chronic kidney disease and bipolar disorder who presented to the emergency room for evaluation of altered mental status. All history was obtained from the ER physician and staff, as the patient is intubated, sedated, and the is on his way to the hospital at this point. The patient apparently has been coughing up yellowish sputum for the last few days. She was confused, per the . The patient also had decreased oral intake for the last couple days. The also stated to the ER physician that the patient had decreased urine output. There was no reported fever, chills or diarrhea. No chest pain. The patient's saturation was 70% upon arrival, and her chest x-ray is consistent with bilateral diffuse infiltrate. PAST MEDICAL HISTORY 1. Chronic kidney disease. 2. Bipolar disorder. 3. Valium and Seroquel overdose. PAST SURGICAL HISTORY 1. Hysterectomy. 2. Cholecystectomy. 3. Hemorrhoid surgery. SOCIAL HISTORY The patient lives with her . She is a smoker, and she also smokes marijuana. She drinks alcohol occasionally. FAMILY HISTORY COPD and lung cancer. ALLERGIES Salicylate, Motrin, aspirin. Unit #: [id number] #: [id number] Patient: GRAZYNA NGUYEN HOME MEDICATIONS 1. Tylenol. 2. Norvasc. 3. Fluoxetine. 4. Vitamin B12. REVIEW OF SYSTEMS Unable to obtain due to the patient's condition. PHYSICAL EXAMINATION VITAL SIGNS: Temperature 99.9, pulse 110, respiratory rate 18, blood pressure 120/75 but dropped to 91/54 when she was placed on propofol. GENERAL: The patient is intubated, sedated. HEENT: Atraumatic, normocephalic. PERRLA, EOMI. NECK: Supple. No JVD. No lymphadenopathy. CHEST: Left-sided fine rhonchi; otherwise, normal. HEART: S1, S2. No murmurs, gallops or rubs. ABDOMEN: Soft, nontender. Bowel sounds positive. No hepatosplenomegaly. EXTREMITIES: No edema or cyanosis. SKIN: No rashes. UTILITY ARBORIST: Intubated, sedated, but she is moving all extremities. LABS AND OTHER TESTS LABORATORY: ABGs - pH 7.19, CO2 74, pO2 435. Creatinine 1.4, CO2 26. White blood count 22.5, hemoglobin 13.2. IMAGING TESTS: Consistent with bilateral diffuse infiltrate. ASSESSMENT 1. Acute hypoxic respiratory failure. 2. Pneumonia, likely atypical. 3. Chronic kidney disease. 4. Leukocytosis. 5. Hyperglycemia. 6. Non-ST elevation MS. PLAN 1. Will continue the patient on the vent and wean as tolerated. 2. Levaquin and Rocephin pending culture. 3. Streptococcus and Legionella antigen tests. 4. Bronchodilator and IV steroids. 5. Mucolytic and IV hydration. 6. DVT/GI prophylaxis. Dictated by... Olvin Ramirez M.D. EA/mirta TD: 03/14/2017 07:47 JOB #: [id number] Unit #: [id number] #: [id number] Patient: GRAZYNA NGUYEN CONSULTATION REPORT Page 1 of 1 X OLVIN YOUNGER MD X CONSULTATION REPORT
--- NOTE | ~2017-03-13 | CR72 ---
[facility] A Service of [facility] RADIOLOGY TEXT RESULTS PATIENT: GRAZYNA NGUYEN LOCATION: [facility] : 46 UNIT #: [id number] AGE: [address]: Davian Lyons MD SEX: F ORDER DR: [id number] [facility] [address] [place], [place] [address] [id number] I MR#: [id number] Acc #: [id number] NAME: GRAZYNA NGUYEN : 1950 SEX: F STUDY DATE/TIME: 03/18/2017 15:03 UNIT: [facility] ROOM: [facility] STUDY DESCRIPTION: CR Chest Single View Portable Attending Physician: Davian Lyons M.D. Ordering Physician: Davian Lyons M.D. Primary Care Physician: No Primary Care Physician MEDICAL IMAGING REPORT This report is preliminary unless electronic signature is present EXAM Portable chest 03/18/2017 HISTORY Shortness of breath, status post central line placement today, post invasive procedure. FINDINGS The cardiac and mediastinal structures are stable, compared with the previous chest radiograph performed earlier today at 05:40 a.m. Endotracheal tube is unchanged. Nasogastric tube remains in place with tip below the diaphragm not visualized. Right internal jugular central line has been inserted with the tip in the superior vena cava. There is no pneumothorax. Small bilateral pleural effusions. Diffuse interstitial infiltrates are unchanged. IMPRESSION Interval placement of right internal jugular central line with the tip in the superior vena cava compared with earlier today at 05:40 a.m. No other change. Dictated by... Tera Dutta M.D. THIS IS AN ELECTRONICALLY VERIFIED REPORT Tera Dutta M.D. at 03/21/2017 10:14 AM MARITZA/rick TD: 03/18/2017 18:46 JOB #: [id number] MEDICAL IMAGING REPORT [facility] A Service [facility] RADIOLOGY TEXT RESULTS PATIENT: GRAZYNA NGUYEN LOCATION: [facility] : [birth year] UNIT #: [id number] AGE: [address]: Davian Lyons MD SEX: F ORDER DR: Page 1 of 1 COPY
--- NOTE | ~2017-03-13 | A ---
[facility] Therapy DATE: 03/14/17 Patient: GRAZYNA WENDY Physician: NEGAR Address: [address] [place] [address] RD Room/Bed: [address], Zip: [place] [address] Admit Date: 03/13/17 Date of : 46 Height: 5 4 Weight: 134 61 NUTRITIONAL ASSESSMENT: REASON: NPO IN ICU ASSESSMENT PT IS 66 Y.O. FEMALE ADMITTED FOR AMS, RESP FAILURE, PNA PMH: CKD STAGE 3, BIPOLAR DISORDER, S/P CHOLY Anthropometrics: 5'6" (PER PAST HEIGHTS), WT: 134# (BEDSIDE) (61 KG), BMI: 21.6 Labs: GLU: 125, BUN: 38, CA+:8.2, ALB: 2.6, GFR: 46.4, NA+:132 Meds: FENTANYL, VERSED, IV LEVAQUIN, NOVOLOG, SOLU-MEDROL, NACL, ZOFRAN, PROTONIX I/O & Bowel function: 2343/560 Skin Integrity: PRESSURE ULCER BILATERAL HEELS Estimated Nutrition Needs: 1935-1279 KCAL (25-30 KCAL/KG BW) 73-91 G PRO (1.2-1.5 G PRO/KG BW) FLUID CONSISTENT W/KCAL NEEDS OR MANAGE PER MD Assessment: CHART REVIEWED AND EVENTS NOTED. PT SEEN FOR NPO IN ICU ASSESSMENT. PT INTUBATED AND SEDATED AT TIME OF VISIT. NO FAMILY IN ROOM AT THIS TIME. PLANS FOR NG TUBE TO BE PLACED FOR MEDICATIONS. NO CURRENT PLANS IN PLACE TO BEGIN ALTERNATIVE NUTRITION SUPPORT AT THIS TIME. PT NOT APPROPRIATE FOR DIET EDUCATION. RD TO FOLLOW. SEE RECOMMENDATIONS BELOW. PER [employer], GRADUAL WEIGHT LOSS NOTED SINCE 2007. Dx: INADEQUATE ORAL INTAKE R/T CURRENT DIAGNOSIS, CURRENT CONDITION, VENT DEPENDENCE AEB NPO STATUS. Intervention: 1. NPO Monitoring, Evaluation and Goals: 1. ENTERAL NUTRITION; ONCE INITIATED, PROVIDE >80% TOTAL VOLUME X 24 HOURS 2. WEIGHTS; PROMOTE WEIGHT MAINTENANCE 3. LABS; WNL: GLU, LYTES 4. SKIN; PROMOTE SKIN HEALING 5. GI; PROMOTE REGULAR GI FUNCTION MONITOR: [facility] DATE: 03/14/17 Patient: GRAZYNA NGUYEN Physician: NEGAR Address: [address] [place] [address] RD Room/Bed: [address], Zip: [place] [address] Admit Date: 03/13/17 Date of : 46 Height: 5 4 Weight: 134 61 -WEIGHTS -PLANS FOR SUPPORT -EXTUBATION? Recommendations: 1. ONCE MEDICALLY FEASIBLE AND PT EXTUBATED, ADVANCE DIET PER LOBBY CONCIERGE EVAL + HEALTHY HEART DIET 2. IF PT REMAINS INTUBATED FOR >24 HOURS, RECOMMEND TO BEGIN ALTERNATIVE NUTRITION SUPPORT OF JEVITY 1.5 @ 20 ML/HR, ADVANCE 10 ML q 4 HOURS TO GOAL RATE OF 40 ML/HR + SUGAR-FREE PROSTAT ONCE DAILY -PROVIDES 1540 KCAL, 76 G PRO, 730 ML FREE H20 ADD FREE H20 FLUSHES PER MD 3. MONITOR BLOOD SUGAR CONTROL REGIMEN RD WILL F/U PER PROTOCOL PT IS SEVERELY COMPROMISED Respectfully, RHIANNON SOFIA MS, RD, LD [employer] [facility] cc: client file
--- NOTE | ~2017-03-13 | DS ---
Unit #: [id number] #: [id number] Patient: GRAZYNA NGUYEN [id number] [address] [address] [id number] MR#: [id number] NAME: GRAZYNA NGUYEN ROOM: 561 Age: 66 Sex: F Admission Date: 03/13/2017 : 1950 Discharge Date: Attending Physician: Davian Lyons M.D. Primary Care Physician: No Primary Care Physician DISCHARGE SUMMARY PRIMARY DIAGNOSIS Acute hypoxemic respiratory failure. SECONDARY DIAGNOSES 1. Pneumonia, completed antibiotics in the hospital. 2. Urinary tract infection, completed antibiotics in the hospital. 3. Clostridium difficile colitis. 4. Hypertension. 5. Hypokalemia. 6. Bipolar disorder. 7. Chronic kidney disease stage 3 with a historical baseline creatinine of 1.2: Creatinines here have ranged from 0.6 to 1.4 with the diminished creatinine most likely representing decreased muscle mass, not improved kidney function. 8. History of valium and Seroquel overdose. 9. Tobacco abuse. 10. Hyperglycemia without diabetes. 11. 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 12. Sepsis secondary to the above diagnoses. 13. Encephalopathy, likely toxic encephalopathy: Resolved at discharge. HOSPITAL COURSE The patient was admitted to the ICU, was intubated, given broad spectrum antibiotics. She was very slow to clinically improve and was very difficult to get off of the ventilator due to agitation. The patient is chronically on high dose Neurontin, Effexor, Geodon and valium and so we adjusted her medications to attempt to compensate for this and eventually was able to extubate the patient. She has been weaned down on her oxygen and is down to 2 L and this can be weaned all the way off at rehab. The patient completed a course of antibiotics for her pneumonia and her urinary tract infection. She did develop some moderate diarrhea and had a C. diff toxin that was positive so she was diagnosed with C. diff and started on oral vanc and Flagyl which she will continue at the rehab facility. Her diarrhea has improved or resolved at discharge. We have decreased her Geodon, Neurontin and valium doses significantly and patient is tolerating this well. The patient does continue to have some leukocytosis secondary to the C. difficile and steroids that she was on. Her last day of steroids was on the day of discharge. Her white blood cell count is trending down to 17.9 thousand. She will need a repeat CBC on Tuesday at rehab and should have reinvestigation for infectious etiology if her white blood cell count is not trending down at that time. Unit #: [id number] #: [id number] Patient: GRAZYNA NGUYEN DISCHARGE DISPOSITION To subacute rehab. DISCHARGE STATUS Stable. DISCHARGE ACTIVITY With assistance only. DISCHARGE DIET Mechanical ground with a 2000 mg sodium restriction. DISCHARGE FOLLOWUP With her primary care physician in two to eight weeks. CONSULTANTS 1. Dr. Caroline Ramirez - Pulmonology. 2. Dr. Tejeda - Neurology. DISCHARGE MEDICATIONS 1. Combivent by nebulizer, 3 mL inhaled q.6 hours. This can likely be stopped at the time of discharge from rehab. 2. Tylenol 325 mg p.o. daily p.r.n. for mild pain. 3. Vancomycin 125 mg p.o. q.6 hours with the last dose to be on 04/01/17. 4. Neurontin 400 mg p.o. t.i.d. 5. Effexor XR 150 mg p.o. daily. 6. Zofran 4 mg p.o. q.6 hours p.r.n. for nausea or vomiting. 7. Geodon 40 mg p.o. b.i.d. 8. Valium 2.5 mg p.o. t.i.d. p.r.n. anxiety. 9. Coreg 3.125 mg p.o. b.i.d. 10. Amlodipine 10 mg p.o. daily. 11. Docusate syrup 100 mg p.o. b.i.d. p.r.n. for constipation. 12. Lisinopril 20 mg p.o. daily. 13. Flagyl 500 mg p.o. q.8 hours with the last dose to be on April 03, 2017. 14. Florastor 250 mg p.o. daily. 15. Aspirin 81 mg p.o. q. h.s. Dictated by... Davian Lyons M.D. CHALO/willam TD: 03/24/2017 12:25 JOB #: [id number] Unit #: [id number] #: [id number] Patient: GRAZYNA NGUYEN DISCHARGE SUMMARY Page 1 of 1 X Davian Lyons MD X DISCHARGE SUMMARY
[~2017-03-13 13:14] MED LIST: BIOTIN1 M1; CIPRO PO; CYANOCOBALAM1000 MCG PO; DIAZEPAM PO; DYAZIDE 37.5/251 CAP PO; FLUOXETINE HCL40 MG PO; GABAPENTIN800 MG PO; GEODAN PO; GEODON80 MG PO; LISINOPRIL PO; MAG-OX 400400 MG PO; MAGNESIUM27 MG; NEURONTIN PO; NEURONTIN800 MG PO; NORVASC PO; NORVASC10 MG PO; PREMARIN PO; PROZAC PO; SEROQUEL PO; SEROQUEL300 MG PO; SEROQUEL400 MG PO; SOD BICARBONATE PO; TYLENOL #3 PO; TYLENOL325 M1 PO; TYLOX 5/500 CAP1 CAP PO; VALIUM10 MG PO; VITAMIN D50000 UNIT PO; ZIPRASIDONE HCL80 MG PO
[2017-03-13 13:38] LABS: BASOPHIL# 0.3 X10e3 (0-0.3); BASOPHIL% 1.4 % (0-2.5); EOSINOPHIL# 0.1 X10e3 (0-0.7); EOSINOPHIL% 0.4 % (0.0-7.0); HEMATOCRIT 39.8 % (35.0-45.0); HEMOGLOBIN 13.2 gm/dL (12.0-16.0); LYMPHOCYTE# 5.2 X10e3 (1.0-3.5); LYMPHOCYTE% 23.3 % (17.0-45.0); MEAN CELL VOLUME 95.9 FL (83-96); MEAN CORPUSCULAR HEMOGLOBIN 31.8 PG (28-34); MEAN CORPUSCULAR HGB CONC 33.1 g/dL (30-36); MEAN PLATELET VOLUME 7.6 FL (6.5-11.5); MONOCYTE# 1.1 X10e3 (0-1.0); MONOCYTE% 4.9 % (3.0-12.0); NEUTROPHIL# 15.7 X10e3 (1.5-7.1); PLATELET COUNT 335 X10e3 (140-420); RED BLOOD COUNT 4.15 X10e (3.90-5.30); RED CELL DISTRIBUTION WIDTH 14.2 % (11.0-15.5); WHITE BLOOD COUNT 22.5 X10e3 (4.0-10.5)
[2017-03-13 13:39] LABS: DIFF IND YES
[2017-03-13 13:42] LABS: URINE SOURCE CLEAN CATCH
[2017-03-13 13:47] LABS: INR 1.1; PARTIAL THROMBOPLASTIN TIME 28.5 SECONDS (23.5-31.3); PROTHROMBIN TIME (PATIENT) 11.4 SECONDS (10.0-11.7)
[2017-03-13 13:53] LABS: URINE APPEARANCE CLOUDY; URINE BLOOD 1+ (NEG); URINE COLOR DK YELLOW; URINE GLUCOSE NEG (NEG); URINE KETONE NEG (NEG); URINE LEUKOCYTE ESTERASE TRACE (NEG); URINE NITRATE NEG (NEG); URINE PH 5.5 (5-8); URINE PROTEIN 2+ (NEG); URINE SPECIFIC GRAVITY 1.022 (1.003-1.035)
[2017-03-13 13:56] LABS: CULTURE INDICATED? YES; URINE BACTERIA AUWI 4+ (NEGATIVE); URINE SQUAMOUS EPITHELIAL CELL OCC /[HPF]; UWBCS1 AUWI 0-2 (0-5)
[2017-03-13 14:00] LABS: U HYALINE CASTS AUWI 0-2 /[LPF]
[2017-03-13 14:01] LABS: URINE BILIRUBIN NEG (NEG)
[2017-03-13 14:05] LABS: ALBUMIN SERUM 3.1 g/dL (3.5-5.0); ALKALINE PHOSPHATASE 148 U/L (32-92); ALT (SGPT) 23 U/L (10-40); AST (SGOT) 28 U/L (10-42); BILIRUBIN, DIRECT 0.4 mg/dL (0.0-0.2); BILIRUBIN,INDIRECT 0.4 mg/dL (0.0-0.9); BILIRUBIN,TOTAL 0.8 mg/dL (0.2-2.0); BLOOD UREA NITROGEN 37 mg/dL (9-23); BUN/CREATININE RATIO 26.42; CALCIUM SERUM 9.8 mg/dL (8.4-10.2); CARBON DIOXIDE 26 mmol/L (22-31); CHLORIDE 94 mmol/L (100-111); CREATININE SERUM 1.4 mg/dL (0.6-1.4); GLOM FILT RATE Estimated 38.5 mL/min (>60); GLUCOSE FASTING 215 mg/dL (70-110); PLATELET ESTIMATE NORMAL (NORMAL); POTASSIUM 4.3 mmol/L (3.5-5.1); PROTEIN TOTAL SERUM 8.8 g/dL (6.0-8.3); SALICYLATE <4.0 mg/dL; SODIUM 132 mmol/L (135-145)
[2017-03-13 14:06] LABS: RBC NORMAL YES
[2017-03-13 14:10] LABS: ACETAMINOPHEN <10 ug/mL; ALCOHOL BLOOD <5 mg/dL ([, 0])
[2017-03-13 14:15] LABS: AMPHETAMINE NEG (NEG); BARBITURATES NEG (NEG); BENZODIAZEPINES POS (NEG); COCAINE NEG (NEG); MARIJUANA POS (NEG); OPIATES NEG (NEG); TRICYCLIC ANTIDEPRESSANTS POS (NEG); U METHADONE NEG (NEG)
[2017-03-13 14:38] LABS: ARTERIAL BLD GAS O2 SATURATION 97.6 % (90.0-100.0); ARTERIAL BLOOD GAS CARBOXY HB 1.5 %sat (0.0-9.0); ARTERIAL BLOOD GAS HCO3 29.1 mmol/L; ARTERIAL BLOOD GAS MET HB 0.9 %sat (0.0-2.0)
[2017-03-13 14:42] LABS: ARTERIAL BLOOD GAS ALLEN TEST N; ARTERIAL BLOOD GAS ART SITE LEFT RADIAL; ARTERIAL BLOOD GAS DELIVERY VENT; ARTERIAL BLOOD GAS PCO2 74.7 mmHg (35.0-45.0); ARTERIAL BLOOD GAS VENT MODE AC; ARTERIAL BLOOD GAS pH 7.199 (7.350-7.450); ARTERIAL DRAW? YES
[2017-03-13 17:27] LABS: MAGNESIUM 1.9 mg/dL (1.6-3.0); PHOSPHOROUS 4.5 mg/dL (2.5-4.6)
[2017-03-13 17:31] LABS: CK TOTAL 54 IU/L (26-140)
[2017-03-13 17:36] LABS: PROCALCITONIN 0.75 NG/ML
[2017-03-13 18:33] LABS: FOLATE (FOLIC ACID) 14.1 ng/mL (>5.8)
[2017-03-13 23:16] LABS: CK TOTAL 42 IU/L (26-140)
[2017-03-14 04:07] LABS: ARTERIAL BLD GAS O2 SATURATION 91.7 % (90.0-100.0); ARTERIAL BLOOD GAS CARBOXY HB 0.6 %sat (0.0-9.0); ARTERIAL BLOOD GAS HCO3 27.2 mmol/L; ARTERIAL BLOOD GAS pH 7.231 (7.350-7.450)
[2017-03-14 04:12] LABS: ARTERIAL BLOOD GAS ALLEN TEST NORMAL; ARTERIAL BLOOD GAS ART SITE RIGHT RADIAL; ARTERIAL BLOOD GAS DELIVERY VENT; ARTERIAL BLOOD GAS PCO2 64.9 mmHg (35.0-45.0); ARTERIAL BLOOD GAS PO2 73.7 mmHg (80.0-100); ARTERIAL BLOOD GAS VENT MODE AC; ARTERIAL DRAW? YES
[2017-03-14 04:28] LABS: BASOPHIL# 0.1 X10e3 (0-0.3); BASOPHIL% 0.7 % (0-2.5); EOSINOPHIL% 0.1 % (0.0-7.0); HEMATOCRIT 36.4 % (35.0-45.0); HEMOGLOBIN 11.7 gm/dL (12.0-16.0); LYMPHOCYTE# 0.4 X10e3 (1.0-3.5); MEAN CELL VOLUME 96.3 FL (83-96); MEAN CORPUSCULAR HEMOGLOBIN 30.9 PG (28-34); MEAN CORPUSCULAR HGB CONC 32.1 g/dL (30-36); MEAN PLATELET VOLUME 7.3 FL (6.5-11.5); MONOCYTE# 2.9 X10e3 (0-1.0); MONOCYTE% 19.8 % (3.0-12.0); NEUTROPHIL# 11.4 X10e3 (1.5-7.1); NEUTROPHIL% 76.4 % (40-75); PLATELET COUNT 284 X10e3 (140-420); RED BLOOD COUNT 3.78 X10e (3.90-5.30); RED CELL DISTRIBUTION WIDTH 14.3 % (11.0-15.5); WHITE BLOOD COUNT 14.9 X10e3 (4.0-10.5)
[2017-03-14 04:29] LABS: DIFF IND NO
[2017-03-14 04:38] LABS: ALBUMIN SERUM 2.6 g/dL (3.5-5.0); BILIRUBIN,TOTAL 0.5 mg/dL (0.2-2.0); BUN/CREATININE RATIO 31.66; CALCIUM SERUM 8.2 mg/dL (8.4-10.2); CREATININE SERUM 1.2 mg/dL (0.6-1.4); GLOM FILT RATE Estimated 46.4 mL/min (>60); MAGNESIUM 1.8 mg/dL (1.6-3.0); PHOSPHOROUS 4.4 mg/dL (2.5-4.6); POTASSIUM 4.2 mmol/L (3.5-5.1); PROTEIN TOTAL SERUM 7.9 g/dL (6.0-8.3)
[2017-03-14 08:33] LABS: LEGIONELLA AG URINE NEG (NEG)
[2017-03-15 04:02] LABS: ARTERIAL BLD GAS O2 SATURATION 95.6 % (90.0-100.0); ARTERIAL BLOOD GAS CARBOXY HB 0.5 %sat (0.0-9.0); ARTERIAL BLOOD GAS HCO3 25.4 mmol/L; ARTERIAL BLOOD GAS PO2 86.7 mmHg (80.0-100)
[2017-03-15 04:03] LABS: ARTERIAL BLOOD GAS ART SITE LEFT BRACHIAL; ARTERIAL BLOOD GAS DELIVERY VENT; ARTERIAL BLOOD GAS PCO2 54.1 mmHg (35.0-45.0); ARTERIAL BLOOD GAS VENT MODE AC; ARTERIAL DRAW? YES
[2017-03-15 04:32] LABS: BASOPHIL% 0.1 % (0-2.5); HEMATOCRIT 32.3 % (35.0-45.0); HEMOGLOBIN 10.4 gm/dL (12.0-16.0); LYMPHOCYTE# 1.1 X10e3 (1.0-3.5); LYMPHOCYTE% 6.7 % (17.0-45.0); MEAN CELL VOLUME 96.6 FL (83-96); MEAN CORPUSCULAR HEMOGLOBIN 31.1 PG (28-34); MEAN CORPUSCULAR HGB CONC 32.2 g/dL (30-36); MEAN PLATELET VOLUME 7.3 FL (6.5-11.5); MONOCYTE# 1.1 X10e3 (0-1.0); MONOCYTE% 6.8 % (3.0-12.0); NEUTROPHIL% 86.4 % (40-75); PLATELET COUNT 271 X10e3 (140-420); RED BLOOD COUNT 3.34 X10e (3.90-5.30); RED CELL DISTRIBUTION WIDTH 14.7 % (11.0-15.5); WHITE BLOOD COUNT 16.3 X10e3 (4.0-10.5)
[2017-03-15 04:33] LABS: DIFF IND NO
[2017-03-15 04:49] LABS: CALCIUM SERUM 8.4 mg/dL (8.4-10.2); GLOM FILT RATE Estimated 57.9 mL/min (>60); POTASSIUM 3.8 mmol/L (3.5-5.1)
[2017-03-16 04:05] LABS: ARTERIAL BLD GAS O2 SATURATION 97.6 % (90.0-100.0); ARTERIAL BLOOD GAS CARBOXY HB 0.5 %sat (0.0-9.0); ARTERIAL BLOOD GAS HCO3 24.7 mmol/L; ARTERIAL BLOOD GAS MET HB 0.8 %sat (0.0-2.0); ARTERIAL BLOOD GAS PCO2 49.1 mmHg (35.0-45.0)
[2017-03-16 04:06] LABS: ARTERIAL BLOOD GAS ALLEN TEST NORMAL; ARTERIAL BLOOD GAS ART SITE LEFT RADIAL; ARTERIAL BLOOD GAS DELIVERY VENT; ARTERIAL BLOOD GAS VENT MODE AC; ARTERIAL DRAW? YES
[2017-03-16 04:06] LABS: BASOPHIL% 0.2 % (0-2.5); EOSINOPHIL% 0.1 % (0.0-7.0); HEMATOCRIT 33.7 % (35.0-45.0); HEMOGLOBIN 11.1 gm/dL (12.0-16.0); LYMPHOCYTE# 0.8 X10e3 (1.0-3.5); LYMPHOCYTE% 6.1 % (17.0-45.0); MEAN CELL VOLUME 95.7 FL (83-96); MEAN CORPUSCULAR HEMOGLOBIN 31.6 PG (28-34); MEAN PLATELET VOLUME 7.1 FL (6.5-11.5); MONOCYTE# 0.7 X10e3 (0-1.0); MONOCYTE% 5.2 % (3.0-12.0); NEUTROPHIL# 12.2 X10e3 (1.5-7.1); NEUTROPHIL% 88.4 % (40-75); PLATELET COUNT 282 X10e3 (140-420); RED BLOOD COUNT 3.52 X10e (3.90-5.30); RED CELL DISTRIBUTION WIDTH 14.9 % (11.0-15.5); WHITE BLOOD COUNT 13.8 X10e3 (4.0-10.5)
[2017-03-16 04:07] LABS: DIFF IND NO
[2017-03-16 04:29] LABS: BUN/CREATININE RATIO 31.11; CALCIUM SERUM 8.6 mg/dL (8.4-10.2); CREATININE SERUM 0.9 mg/dL (0.6-1.4); GLOM FILT RATE Estimated 65.7 mL/min (>60); POTASSIUM 3.7 mmol/L (3.5-5.1)
[2017-03-17 05:26] LABS: ARTERIAL BLD GAS O2 SATURATION 97.7 % (90.0-100.0); ARTERIAL BLOOD GAS CARBOXY HB 0.4 %sat (0.0-9.0); ARTERIAL BLOOD GAS HCO3 27.1 mmol/L; ARTERIAL BLOOD GAS MET HB 0.8 %sat (0.0-2.0); ARTERIAL BLOOD GAS PCO2 47.2 mmHg (35.0-45.0); ARTERIAL BLOOD GAS pH 7.367 (7.350-7.450)
[2017-03-17 05:32] LABS: BASOPHIL% 0.1 % (0-2.5); EOSINOPHIL% 0.2 % (0.0-7.0); HEMATOCRIT 31.5 % (35.0-45.0); HEMOGLOBIN 10.2 gm/dL (12.0-16.0); LYMPHOCYTE# 1.1 X10e3 (1.0-3.5); LYMPHOCYTE% 9.7 % (17.0-45.0); MEAN CELL VOLUME 96.5 FL (83-96); MEAN CORPUSCULAR HEMOGLOBIN 31.1 PG (28-34); MEAN CORPUSCULAR HGB CONC 32.3 g/dL (30-36); MEAN PLATELET VOLUME 7.1 FL (6.5-11.5); MONOCYTE# 0.6 X10e3 (0-1.0); MONOCYTE% 5.2 % (3.0-12.0); NEUTROPHIL% 84.8 % (40-75); PLATELET COUNT 252 X10e3 (140-420); RED BLOOD COUNT 3.26 X10e (3.90-5.30); RED CELL DISTRIBUTION WIDTH 14.9 % (11.0-15.5); WHITE BLOOD COUNT 11.8 X10e3 (4.0-10.5)
[2017-03-17 05:35] LABS: DIFF IND YES
[2017-03-17 05:35] LABS: ARTERIAL BLOOD GAS ALLEN TEST NORMAL; ARTERIAL BLOOD GAS ART SITE RIGHT RADIAL; ARTERIAL BLOOD GAS VENT MODE AC; ARTERIAL DRAW? YES
[2017-03-17 05:47] LABS: BUN/CREATININE RATIO 25.55; CALCIUM SERUM 8.5 mg/dL (8.4-10.2); CREATININE SERUM 0.9 mg/dL (0.6-1.4); GLOM FILT RATE Estimated 65.7 mL/min (>60); POTASSIUM 3.9 mmol/L (3.5-5.1)
[2017-03-17 06:07] LABS: PLATELET ESTIMATE NORMAL (NORMAL)
[2017-03-17 06:08] LABS: ANISOCYTOSIS SL; HYPOCHROMIA SL
[2017-03-17] MEDS ORDERED: EFFEXOR XR150 MG PO (08:06)
[2017-03-17] MEDS ORDERED: NEURONTIN600 MG PO (08:06)
[2017-03-17] MEDS ORDERED: GEODON80 MG PO (08:06)
[2017-03-17] MEDS ORDERED: VALIUM10 M1 PO (08:07)
[2017-03-18 03:47] LABS: ARTERIAL BLD GAS O2 SATURATION 97.6 % (90.0-100.0); ARTERIAL BLOOD GAS CARBOXY HB 0.6 %sat (0.0-9.0); ARTERIAL BLOOD GAS HCO3 28.2 mmol/L; ARTERIAL BLOOD GAS MET HB 0.6 %sat (0.0-2.0); ARTERIAL BLOOD GAS PCO2 48.1 mmHg (35.0-45.0); ARTERIAL BLOOD GAS pH 7.375 (7.350-7.450)
[2017-03-18 03:48] LABS: ARTERIAL BLOOD GAS ALLEN TEST NORMAL; ARTERIAL BLOOD GAS ART SITE RIGHT RADIAL; ARTERIAL BLOOD GAS DELIVERY VENT; ARTERIAL BLOOD GAS VENT MODE AC; ARTERIAL DRAW? YES
[2017-03-18 05:21] LABS: BASOPHIL% 0.2 % (0-2.5); EOSINOPHIL% 0.2 % (0.0-7.0); HEMATOCRIT 33.2 % (35.0-45.0); HEMOGLOBIN 10.7 gm/dL (12.0-16.0); LYMPHOCYTE% 7.9 % (17.0-45.0); MEAN CELL VOLUME 95.6 FL (83-96); MEAN CORPUSCULAR HGB CONC 32.4 g/dL (30-36); MEAN PLATELET VOLUME 7.4 FL (6.5-11.5); MONOCYTE# 0.4 X10e3 (0-1.0); NEUTROPHIL# 11.7 X10e3 (1.5-7.1); NEUTROPHIL% 88.7 % (40-75); PLATELET COUNT 272 X10e3 (140-420); RED BLOOD COUNT 3.47 X10e (3.90-5.30); WHITE BLOOD COUNT 13.2 X10e3 (4.0-10.5)
[2017-03-18 05:29] LABS: DIFF IND NO
[2017-03-18 06:56] LABS: BUN/CREATININE RATIO 27.14; CALCIUM SERUM 8.7 mg/dL (8.4-10.2); CREATININE SERUM 0.7 mg/dL (0.6-1.4); POTASSIUM 4.9 mmol/L (3.5-5.1)
[2017-03-19 03:45] LABS: ARTERIAL BLD GAS O2 SATURATION 95.7 % (90.0-100.0); ARTERIAL BLOOD GAS CARBOXY HB 0.7 %sat (0.0-9.0); ARTERIAL BLOOD GAS HCO3 36.2 mmol/L; ARTERIAL BLOOD GAS MET HB 0.7 %sat (0.0-2.0); ARTERIAL BLOOD GAS PCO2 46.2 mmHg (35.0-45.0); ARTERIAL BLOOD GAS pH 7.503 (7.350-7.450)
[2017-03-19 03:48] LABS: ARTERIAL BLOOD GAS ALLEN TEST NORMAL; ARTERIAL BLOOD GAS ART SITE RIGHT RADIAL; ARTERIAL BLOOD GAS DELIVERY VENT; ARTERIAL BLOOD GAS PO2 77.8 mmHg (80.0-100); ARTERIAL BLOOD GAS VENT MODE A/C; ARTERIAL DRAW? YES
[2017-03-19 04:00] LABS: HEMATOCRIT 34.4 % (35.0-45.0); HEMOGLOBIN 11.3 gm/dL (12.0-16.0); MEAN CELL VOLUME 94.2 FL (83-96); MEAN CORPUSCULAR HGB CONC 32.9 g/dL (30-36); MEAN PLATELET VOLUME 7.2 FL (6.5-11.5); RED BLOOD COUNT 3.65 X10e (3.90-5.30); WHITE BLOOD COUNT 12.4 X10e3 (4.0-10.5)
[2017-03-19 04:17] LABS: BUN/CREATININE RATIO 31.66; CALCIUM SERUM 8.7 mg/dL (8.4-10.2); CREATININE SERUM 0.6 mg/dL (0.6-1.4); GLOM FILT RATE Estimated 93.7 mL/min (>60); MAGNESIUM 1.5 mg/dL (1.6-3.0); PHOSPHOROUS 3.7 mg/dL (2.5-4.6); POTASSIUM 4.2 mmol/L (3.5-5.1)
[2017-03-19 13:46] LABS: ARTERIAL BLD GAS O2 SATURATION 95.4 % (90.0-100.0); ARTERIAL BLOOD GAS CARBOXY HB 0.6 %sat (0.0-9.0); ARTERIAL BLOOD GAS HCO3 38.6 mmol/L; ARTERIAL BLOOD GAS MET HB 0.6 %sat (0.0-2.0); ARTERIAL BLOOD GAS PO2 97.7 mmHg (80.0-100); ARTERIAL BLOOD GAS pH 7.349 (7.350-7.450)
[2017-03-19 13:49] LABS: ARTERIAL BLOOD GAS PCO2 70.2 mmHg (35.0-45.0); ARTERIAL DRAW? YES
[2017-03-19 13:50] LABS: ARTERIAL BLOOD GAS ART SITE LEFT RADIAL; ARTERIAL BLOOD GAS DELIVERY VENT; ARTERIAL BLOOD GAS VENT MODE CPAP
[2017-03-20 03:56] LABS: ARTERIAL BLOOD GAS CARBOXY HB 0.6 %sat (0.0-9.0); ARTERIAL BLOOD GAS HCO3 37.4 mmol/L; ARTERIAL BLOOD GAS MET HB 0.5 %sat (0.0-2.0); ARTERIAL BLOOD GAS PO2 85.2 mmHg (80.0-100); ARTERIAL BLOOD GAS pH 7.518 (7.350-7.450)
[2017-03-20 04:04] LABS: ARTERIAL BLOOD GAS ALLEN TEST NORMAL; ARTERIAL BLOOD GAS ART SITE RIGHT RADIAL; ARTERIAL BLOOD GAS DELIVERY VENT; ARTERIAL BLOOD GAS VENT MODE A/C; ARTERIAL DRAW? YES
[2017-03-20 05:54] LABS: BASOPHIL% 0.1 % (0-2.5); EOSINOPHIL% 0.4 % (0.0-7.0); HEMATOCRIT 33.1 % (35.0-45.0); HEMOGLOBIN 10.8 gm/dL (12.0-16.0); LYMPHOCYTE# 1.3 X10e3 (1.0-3.5); LYMPHOCYTE% 14.1 % (17.0-45.0); MEAN CELL VOLUME 94.9 FL (83-96); MEAN CORPUSCULAR HEMOGLOBIN 31.1 PG (28-34); MEAN CORPUSCULAR HGB CONC 32.7 g/dL (30-36); MEAN PLATELET VOLUME 7.4 FL (6.5-11.5); MONOCYTE# 0.5 X10e3 (0-1.0); MONOCYTE% 5.4 % (3.0-12.0); NEUTROPHIL# 7.4 X10e3 (1.5-7.1); PLATELET COUNT 227 X10e3 (140-420); RED BLOOD COUNT 3.49 X10e (3.90-5.30); RED CELL DISTRIBUTION WIDTH 14.6 % (11.0-15.5); WHITE BLOOD COUNT 9.3 X10e3 (4.0-10.5)
[2017-03-20 06:08] LABS: DIFF IND NO
[2017-03-20 06:26] LABS: ALBUMIN SERUM 2.5 g/dL (3.5-5.0); BILIRUBIN,TOTAL 0.6 mg/dL (0.2-2.0); BUN/CREATININE RATIO 31.42; CALCIUM SERUM 8.6 mg/dL (8.4-10.2); CREATININE SERUM 0.7 mg/dL (0.6-1.4); MAGNESIUM 1.7 mg/dL (1.6-3.0); PROTEIN TOTAL SERUM 6.8 g/dL (6.0-8.3)
[2017-03-20 10:25] LABS: ARTERIAL BLD GAS O2 SATURATION 97.6 % (90.0-100.0); ARTERIAL BLOOD GAS CARBOXY HB 0.8 %sat (0.0-9.0); ARTERIAL BLOOD GAS HCO3 38.9 mmol/L; ARTERIAL BLOOD GAS MET HB 0.9 %sat (0.0-2.0); ARTERIAL BLOOD GAS pH 7.392 (7.350-7.450)
[2017-03-20 10:56] LABS: ARTERIAL BLOOD GAS PCO2 63.9 mmHg (35.0-45.0)
[2017-03-20 10:57] LABS: ARTERIAL BLOOD GAS ALLEN TEST NORMAL; ARTERIAL BLOOD GAS ART SITE RIGHT RADIAL; ARTERIAL BLOOD GAS DELIVERY VEMT; ARTERIAL BLOOD GAS VENT MODE CPAP; ARTERIAL DRAW? YES
[2017-03-21 03:52] LABS: ARTERIAL BLD GAS O2 SATURATION 93.3 % (90.0-100.0); ARTERIAL BLOOD GAS CARBOXY HB 0.8 %sat (0.0-9.0); ARTERIAL BLOOD GAS HCO3 38.6 mmol/L; ARTERIAL BLOOD GAS MET HB 0.7 %sat (0.0-2.0); ARTERIAL BLOOD GAS PCO2 41.9 mmHg (35.0-45.0); ARTERIAL BLOOD GAS pH 7.573 (7.350-7.450)
[2017-03-21 03:58] LABS: ARTERIAL BLOOD GAS ALLEN TEST NORMAL; ARTERIAL BLOOD GAS ART SITE RIGHT RADIAL; ARTERIAL BLOOD GAS DELIVERY NASAL CANNULA; ARTERIAL BLOOD GAS PO2 63.5 mmHg (80.0-100); ARTERIAL DRAW? YES
[2017-03-21 05:29] LABS: BASOPHIL% 0.1 % (0-2.5); EOSINOPHIL% 0.1 % (0.0-7.0); HEMATOCRIT 35.8 % (35.0-45.0); HEMOGLOBIN 11.6 gm/dL (12.0-16.0); LYMPHOCYTE# 1.1 X10e3 (1.0-3.5); LYMPHOCYTE% 7.9 % (17.0-45.0); MEAN CELL VOLUME 94.7 FL (83-96); MEAN CORPUSCULAR HEMOGLOBIN 30.7 PG (28-34); MEAN CORPUSCULAR HGB CONC 32.4 g/dL (30-36); MEAN PLATELET VOLUME 7.4 FL (6.5-11.5); MONOCYTE# 0.5 X10e3 (0-1.0); MONOCYTE% 3.6 % (3.0-12.0); NEUTROPHIL# 12.8 X10e3 (1.5-7.1); NEUTROPHIL% 88.3 % (40-75); PLATELET COUNT 253 X10e3 (140-420); RED BLOOD COUNT 3.78 X10e (3.90-5.30); RED CELL DISTRIBUTION WIDTH 14.3 % (11.0-15.5)
[2017-03-21 05:39] LABS: DIFF IND NO; WHITE BLOOD COUNT 14.5 X10e3 (4.0-10.5)
[2017-03-21 06:28] LABS: ALBUMIN SERUM 2.9 g/dL (3.5-5.0); BILIRUBIN,TOTAL 0.5 mg/dL (0.2-2.0); BUN/CREATININE RATIO 27.5; CALCIUM SERUM 9.3 mg/dL (8.4-10.2); CREATININE SERUM 0.8 mg/dL (0.6-1.4); GLOM FILT RATE Estimated 75.8 mL/min (>60); POTASSIUM 3.6 mmol/L (3.5-5.1); PROTEIN TOTAL SERUM 7.8 g/dL (6.0-8.3)
[2017-03-22 06:03] LABS: BASOPHIL# 0.1 X10e3 (0-0.3); BASOPHIL% 0.5 % (0-2.5); EOSINOPHIL# 0.1 X10e3 (0-0.7); EOSINOPHIL% 0.9 % (0.0-7.0); HEMATOCRIT 37.8 % (35.0-45.0); HEMOGLOBIN 12.5 gm/dL (12.0-16.0); LYMPHOCYTE# 3.2 X10e3 (1.0-3.5); LYMPHOCYTE% 19.7 % (17.0-45.0); MEAN CELL VOLUME 94.2 FL (83-96); MEAN CORPUSCULAR HEMOGLOBIN 31.1 PG (28-34); MEAN PLATELET VOLUME 7.4 FL (6.5-11.5); MONOCYTE# 1.3 X10e3 (0-1.0); MONOCYTE% 7.8 % (3.0-12.0); NEUTROPHIL# 11.5 X10e3 (1.5-7.1); NEUTROPHIL% 71.1 % (40-75); PLATELET COUNT 282 X10e3 (140-420); RED BLOOD COUNT 4.01 X10e (3.90-5.30); RED CELL DISTRIBUTION WIDTH 14.2 % (11.0-15.5); WHITE BLOOD COUNT 16.1 X10e3 (4.0-10.5)
[2017-03-22 06:06] LABS: DIFF IND YES
[2017-03-22 06:24] LABS: BUN/CREATININE RATIO 23.33; CALCIUM SERUM 9.1 mg/dL (8.4-10.2); CREATININE SERUM 0.9 mg/dL (0.6-1.4); GLOM FILT RATE Estimated 65.7 mL/min (>60); POTASSIUM 3.2 mmol/L (3.5-5.1)
[2017-03-22 06:55] LABS: ANISOCYTOSIS SL; PLATELET ESTIMATE NORMAL (NORMAL); POIKILOCYTOSIS SL
[2017-03-23 06:39] LABS: HEMATOCRIT 38.5 % (35.0-45.0); HEMOGLOBIN 12.9 gm/dL (12.0-16.0); MEAN CELL VOLUME 93.8 FL (83-96); MEAN CORPUSCULAR HEMOGLOBIN 31.3 PG (28-34); MEAN CORPUSCULAR HGB CONC 33.4 g/dL (30-36); MEAN PLATELET VOLUME 7.3 FL (6.5-11.5); RED BLOOD COUNT 4.1 X10e (3.90-5.30); RED CELL DISTRIBUTION WIDTH 14.3 % (11.0-15.5); WHITE BLOOD COUNT 18.5 X10e3 (4.0-10.5)
[2017-03-23 06:44] LABS: CALCIUM SERUM 9.5 mg/dL (8.4-10.2); GLOM FILT RATE Estimated 57.9 mL/min (>60); MAGNESIUM 1.8 mg/dL (1.6-3.0); POTASSIUM 3.7 mmol/L (3.5-5.1)
[2017-03-24 06:45] LABS: HEMATOCRIT 40.6 % (35.0-45.0); HEMOGLOBIN 13.1 gm/dL (12.0-16.0); MEAN CELL VOLUME 95.8 FL (83-96); MEAN CORPUSCULAR HGB CONC 32.4 g/dL (30-36); MEAN PLATELET VOLUME 7.7 FL (6.5-11.5); RED BLOOD COUNT 4.23 X10e (3.90-5.30); RED CELL DISTRIBUTION WIDTH 14.6 % (11.0-15.5); WHITE BLOOD COUNT 17.9 X10e3 (4.0-10.5)
[2017-03-24 07:23] LABS: CALCIUM SERUM 9.8 mg/dL (8.4-10.2); CREATININE SERUM 0.9 mg/dL (0.6-1.4); GLOM FILT RATE Estimated 65.7 mL/min (>60); POTASSIUM 3.5 mmol/L (3.5-5.1)
== END 2017-03-24 19:53 | DRG 853 ==
LOC: CED 13:14 → CICCU2 15:40 → CEDOF 15:40 → CED 16:17 → CICCU2 17:55 → CEDOF 17:55 → CICCU2 03-14 09:28 → C5B 03-21 14:35
PROVIDERS: Emergency Medicine; Family Medicine; Internal Medicine; Internal Medicine Pulmonary Disease
PROC: 5A1955Z Respiratory Ventilation, Greater than 96 Consecutive Hours (ICD-10-PCS; principal; 2017-03-13)
PROC: 0BH17EZ Insertion of Endotracheal Airway into Trachea, Via Natural or Artificial Opening (ICD-10-PCS; 2017-03-13)
PROC: 04HL33Z Insertion of Infusion Device into Left Femoral Artery, Percutaneous Approach (ICD-10-PCS; 2017-03-14)
PROC: B44GZZ3 Ultrasonography of Left Lower Extremity Arteries, Intravascular (ICD-10-PCS; 2017-03-14)
PROC: 0B9F8ZX Drainage of Right Lower Lung Lobe, Via Natural or Artificial Opening Endoscopic, Diagnostic (ICD-10-PCS; 2017-03-16)
PROC: 0B9J8ZZ Drainage of Left Lower Lung Lobe, Via Natural or Artificial Opening Endoscopic (ICD-10-PCS; 2017-03-16 08:00)
PROC: 05HM33Z Insertion of Infusion Device into Right Internal Jugular Vein, Percutaneous Approach (ICD-10-PCS; 2017-03-18)
DX: A41.9 Sepsis, unspecified organism (principal); J96.01 Acute respiratory failure with hypoxia; I21.4 Non-ST elevation (NSTEMI) myocardial infarction; R65.21 Severe sepsis with septic shock; G92 Toxic encephalopathy; J18.9 Pneumonia, unspecified organism; J44.0 Chronic obstructive pulmonary disease with (acute) lower respiratory infection; A04.7 Enterocolitis due to Clostridium difficile; E44.0 Moderate protein-calorie malnutrition; N18.3 Chronic kidney disease, stage 3 (moderate); N39.0 Urinary tract infection, site not specified; M62.82 Rhabdomyolysis; J44.1 Chronic obstructive pulmonary disease with (acute) exacerbation; E87.6 Hypokalemia; I12.9 Hypertensive chronic kidney disease with stage 1 through stage 4 chronic kidney disease, or unspecified chronic kidney disease; F31.9 Bipolar disorder, unspecified; F17.200 Nicotine dependence, unspecified, uncomplicated; R73.9 Hyperglycemia, unspecified; Z86.73 Personal history of transient ischemic attack (TIA), and cerebral infarction without residual deficits; Z90.49 Acquired absence of other specified parts of digestive tract; Z90.710 Acquired absence of both cervix and uterus; Z88.6 Allergy status to analgesic agent; Z88.8 Allergy status to other drugs, medicaments and biological substances; Z80.1 Family history of malignant neoplasm of trachea, bronchus and lung; Z83.6 Family history of other diseases of the respiratory system; L89.90 Pressure ulcer of unspecified site, unspecified stage; Z68.21 Body mass index [BMI] 21.0-21.9, adult; F32.9 Major depressive disorder, single episode, unspecified; B96.89 Other specified bacterial agents as the cause of diseases classified elsewhere; D64.9 Anemia, unspecified
CPT/HCPCS: 31500; 36415; 36600; 51702; 70450; 71010; 74000; 80048; 80053; 80076; 80307; 81003; 82140; 82308; 82550; 82607; 82746; 82803; 82947; 83036; 83605; 83735; 83880; 84100; 84443; 84484; 85025; 85027; 85610; 85730; 87040; 87070; 87086; 87088; 87102; 87106; 87116; 87186; 87205; 87206; 87449; 87493; 87806; 87899; 88108; 88305; 88312; 89190; 92526; 92610; 93005; 94002; 94003; 94640; 94760; 94761; 96361; 96374; 97110; 97116; 97162; 97167; 97530; 97535; 99285; C9113; G0480; G8978-GP; G8979-GP; G8980-GP; G8987-GO; G8988-GO; G8996-GN; G8997-GN; G8998-GN; J0171; J0330; J0456; J0692; J0696; J1650; J1815; J1956; J2250; J2310; J2920; J3475; J3490